=== PATIENT | female | born 2000 | race African-American/Black ===

== ENCOUNTER 2023-06-19 19:57 | Emergency (ER) | payer MEDICAID ==
[~2023-06-19] VITALS: Ht 154.9 cm; Wt 91.8 kg
[2023-06-19 20:23] LABS: COVID AG,FIA SOURCE NASAL SWAB
[2023-06-19 20:50] LABS: INFLUENZA TYPE A NEGATIVE FOR TYPE A (NEGATIVE); INFLUENZA TYPE B NEGATIVE FOR TYPE B (NEGATIVE); SARS-COV2 (COVID) ANTIGEN,FIA Negative (Negative)
[2023-06-19] MEDS ORDERED: IBUP-1492 PO (23:43)
[2023-06-19] MEDS ORDERED: ACET-3385 PO (23:43)
[2023-06-20] VITALS: BP 127/70; PULSE 85; RESP 16; TEMP 98.3
[2023-06-20] MEDS: ACETAMINOPHEN 500 MG TABLET PO ONE (00:11)
[2023-06-20] MEDS: IBUPROFEN 600 MG TABLET PO ONE (00:15)
== END 2023-06-20 00:15 | disposition home or self-care (01) ==
LOC: EMS 19:58
DX: B34.9 Viral infection, unspecified (principal); Z20.822 Contact with and (suspected) exposure to COVID-19
CPT/HCPCS: 87804; 99283